=== PATIENT | female | born 1990 | race Caucasian/White ===

== ENCOUNTER 2022-11-03 14:37 | Inpatient (IN) | payer BC ==
[2022-11-04] MEDS ORDERED: ePHEDrine Sulfate 50 MG/10 ML VIAL ONE (08:00)
[2022-11-04] MEDS ORDERED: Bupivacaine 0.25% HCL 30 ML VIAL ONE (08:00)
[2022-11-04] MEDS ORDERED: Diphenoxylate HCl/Atropine Tablet PO PRN ×2 (14:33)
[2022-11-04] MEDS ORDERED: hydrALAZINE 20 MG/ML VIAL SLOW IVP PRN (14:33)
[2022-11-04] MEDS ORDERED: Ibuprofen 800 MG TAB PO PRN (14:33)
[2022-11-04] MEDS ORDERED: Misoprostol 200 MCG TAB PR PRN (14:33)
[2022-11-04] MEDS ORDERED: Docusate 100 MG CAP PO PRN (14:33)
[2022-11-04] MEDS ORDERED: Acetaminophen 500 MG TAB PO PRN (14:33)
[2022-11-04] MEDS ORDERED: Butorphanol Tartrate 1 MG/ML VIAL SLOW IVP PRN (14:33)
[2022-11-04] MEDS ORDERED: Promethazine HCl 25 MG/ML VIAL IM PRN (14:33)
[2022-11-04] MEDS ORDERED: HYDROcodone/Acetaminophen 5/325 mg Tablet PO PRN ×2 (14:33)
[2022-11-04] MEDS ORDERED: NS w/ Oxytocin 30 units 500 ML IV SCH ×2 (14:33)
[2022-11-04] MEDS ORDERED: Carboprost 250 MCG/ML AMP IM PRN (14:33)
[2022-11-04] MEDS ORDERED: Lidocaine 1% (PF) 30 ML VIAL SC PRN (14:33)
[2022-11-04] MEDS ORDERED: Ondansetron PF 4 MG/2 ML Vial IVP PRN (14:33)
[2022-11-04 14:36] VITALS: BMI 32.5
[2022-11-04] MEDS: Lactated Ringer's 1,000 ML IV SCH (15:00)
[2022-11-04] MEDS ORDERED: Penicillin G Potassium 5 MILL.UNITS in Sodium Chloride 0.9% 100 ML IVPB SCH (15:00)
[2022-11-04] MEDS: Misoprostol 100 MCG TAB VAG SCH (15:27)
[2022-11-04 15:44] LABS: Hemoglobin 13.1 g/dL (12.0-15.5); Mean Corpuscular HGB CONC 33.9 g/dL (32.0-36.0); Mean Corpuscular Volume 88.3 fl (81.6-98.3); Mean Platelet Volume 10.4 fl (7.4-10.4); Platelet Count 308 10x3/uL (150-450); RBC Distribution Width 13.1 % (11.5-14.5); Red Blood Cell (RBC) Count 4.37 10x6/uL (3.90-5.03); White Blood Cell (WBC) Count 11.5 10x3/uL (3.5-10.5)
[2022-11-04 16:06] LABS: SARS-CoV-2 NAA Rapid Test Not Detected (NotDetected)
[2022-11-04 16:18] LABS: HBSAg Index 0.12 S/CO (0-0.99); HIV (1/2) Antibody/Antigen Non-Reactive (NonReactive); HIV 1/2 INDEX 0.14 S/CO (<1.00); Hep B Surf Ag Non-Reactive S/CO (NonReactive)
[2022-11-04 16:24] LABS: Syphilis Antibody Nonreactive (Nonreactive); Syphilis Antibody Index 0.04 S/CO (<1.00 Non-Reactive)
[2022-11-04] MEDS: Penicillin G 2.5 MILL.units 2.5 MILL.UNITS in Premix Bag 1 BAG IVPB SCH ×2 (19:11→23:22)
[2022-11-05] MEDS: Misoprostol 100 MCG TAB VAG SCH ×5 (00:49→20:57)
[2022-11-05] MEDS: Penicillin G 2.5 MILL.units 2.5 MILL.UNITS in Premix Bag 1 BAG IVPB SCH ×4 (00:49→20:19)
[2022-11-05] MEDS: Lactated Ringer's 1,000 ML IV SCH ×3 (00:49→20:19)
[2022-11-05] MEDS ORDERED: Fentanyl 2 mcg/Bup 0.1% Cadd 100 ML ONE (10:32)
[2022-11-05] MEDS ORDERED: ePHEDrine Sulfate 50 MG/10 ML VIAL SLOW IVP PRN (14:11)
[2022-11-05] MEDS ORDERED: Lactated Ringer's 500 ML IV PRN (14:11)
[2022-11-05] MEDS ORDERED: Promethazine HCl 25 MG/ML VIAL IM PRN (14:11)
[2022-11-05] MEDS ORDERED: diphenhydrAMINE 50 MG/ML VIAL IVP PRN (14:11)
[2022-11-05] MEDS ORDERED: Moisturizing Cream (Eucerin) 113 GM JAR TOP PRN (14:11)
[2022-11-05] MEDS ORDERED: Acetaminophen 325 MG TAB PO PRN (14:11)
[2022-11-05] MEDS ORDERED: Ondansetron PF 4 MG/2 ML Vial IVP PRN ×2 (14:11→19:59)
[2022-11-05] MEDS ORDERED: Naloxone HCl 0.4 mg/ml Vial IVP PRN ×2 (14:11)
[2022-11-05] MEDS ORDERED: Communication Order-Pharmacy FS SCH (14:15)
[2022-11-05] MEDS ORDERED: Fentanyl 2 mcg/Bupivacaine 0.1% Cassette 100 ML EPIDURAL SCH (14:15)
[2022-11-05] MEDS ORDERED: diphenhydrAMINE 25 MG CAP PO PRN (19:59)
[2022-11-05] MEDS ORDERED: Bisacodyl 10 MG SUPP PR PRN (19:59)
[2022-11-05] MEDS ORDERED: Preparation H Ointment 28 GM TUBE PR PRN (19:59)
[2022-11-05] MEDS ORDERED: Zolpidem Tartrate 5 MG TAB PO PRN (19:59)
[2022-11-05] MEDS ORDERED: hydrALAZINE 20 MG/ML VIAL SLOW IVP PRN (19:59)
[2022-11-05] MEDS ORDERED: Boostrix 0.5 ML (Tdap) VIAL (>/=7 yrs of age) IM ONE (19:59)
[2022-11-05] MEDS ORDERED: Lanolin Ointment 7 GM TUBE TOP PRN (19:59)
[2022-11-05] MEDS ORDERED: Milk Of Magnesia 30 ML UDCUP PO PRN (19:59)
[2022-11-05] MEDS ORDERED: Misoprostol 200 MCG TAB VAG PRN (19:59)
[2022-11-05] MEDS ORDERED: HYDROcodone/Acetaminophen 5/325 mg Tablet PO PRN (19:59)
[2022-11-05] MEDS ORDERED: NS w/ Oxytocin 30 units 500 ML IV SCH (20:00)
[2022-11-05] MEDS ORDERED: Benzocaine-Menthol 82.5 ML CAN TOP PRN (22:47)
[2022-11-05] MEDS: Docusate 100 MG CAP PO SCH (22:49)
[2022-11-05] MEDS: Ibuprofen 800 MG TAB PO SCH (22:49)
[2022-11-06 04:09] LABS: Hemoglobin 11.8 g/dL (12.0-15.5); Mean Corpuscular HGB CONC 33.2 g/dL (32.0-36.0); Mean Corpuscular Hemoglobin 29.6 pg (27.0-33.0); Mean Corpuscular Volume 89.2 fl (81.6-98.3); Mean Platelet Volume 10.2 fl (7.4-10.4); Platelet Count 281 10x3/uL (150-450); RBC Distribution Width 12.9 % (11.5-14.5); Red Blood Cell (RBC) Count 3.98 10x6/uL (3.90-5.03); White Blood Cell (WBC) Count 20.7 10x3/uL (3.5-10.5)
[2022-11-06] MEDS: Ibuprofen 800 MG TAB PO SCH ×3 (06:10→21:01)
[2022-11-06] MEDS: Ferrous Sulfate 325 MG TAB PO SCH ×2 (07:46→15:30)
[2022-11-06] MEDS: Docusate 100 MG CAP PO SCH ×2 (08:27→21:01)
[2022-11-06] MEDS: Prenatal Vitamin 1 TAB PO SCH (08:27)
[2022-11-06] MEDS: HYDROcodone/Acetaminophen 5/325 mg Tablet PO PRN (21:02)
[2022-11-07] MEDS: Ibuprofen 800 MG TAB PO SCH (05:42)
[2022-11-07] MEDS: Ferrous Sulfate 325 MG TAB PO SCH (07:10)
[2022-11-07 07:53] VITALS: BP 111/74; TEMP 97.5
[2022-11-07] MEDS: Prenatal Vitamin 1 TAB PO SCH (08:58)
[2022-11-07] MEDS: Docusate 100 MG CAP PO SCH (08:58)
[2022-11-07] MEDS: HYDROcodone/Acetaminophen 5/325 mg Tablet PO PRN (11:28)
== END 2022-11-07 11:50 | disposition home or self-care (01) | DRG 768 ==
LOC: CSHLD 11-04 14:31 → CSHPP 11-05 21:40
PROVIDERS: ADMIT Obstetrics & Gynecology; ATTEND Obstetrics & Gynecology
PROC: 10D07Z6 Extraction of Products of Conception, Vacuum, Via Natural or Artificial Opening (ICD-10-PCS; principal; 2022-11-05)
PROC: 0UQJXZZ Repair Clitoris, External Approach (ICD-10-PCS; 2022-11-05)
PROC: 0KQM0ZZ Repair Perineum Muscle, Open Approach (ICD-10-PCS; 2022-11-05)
PROC: 3E0P7VZ Introduction of Hormone into Female Reproductive, Via Natural or Artificial Opening (ICD-10-PCS; 2022-11-05)
PROC: 0W8NXZZ Division of Female Perineum, External Approach (ICD-10-PCS; 2022-11-05)
PROC: 10907ZC Drainage of Amniotic Fluid, Therapeutic from Products of Conception, Via Natural or Artificial Opening (ICD-10-PCS; 2022-11-05)
DX: O99.824 Streptococcus B carrier state complicating childbirth (principal); Z37.0 Single live birth; Z3A.39 39 weeks gestation of pregnancy; Z20.822 Contact with and (suspected) exposure to COVID-19; O70.1 Second degree perineal laceration during delivery; O32.8XX0 Maternal care for other malpresentation of fetus, not applicable or unspecified
CPT/HCPCS: 36415; 51702; 85027; 86780; 86850; 86900; 86901; 87340; 87389; J2405; J2540; J3490; J7120; S0020; U0002

== ENCOUNTER 2024-04-27 00:58 | Inpatient (IN) | payer BC ==
[2024-04-27 01:18] VITALS: BMI 30.8
[2024-04-27] MEDS ORDERED: hydrALAZINE 20 MG/ML VIAL SLOW IVP PRN ×3 (02:03→15:16)
[2024-04-27] MEDS ORDERED: Promethazine HCl 25 MG/ML VIAL IM PRN ×2 (05:17→09:52)
[2024-04-27] MEDS ORDERED: Tranexamic Acid 1,000 MG/10 ML VIAL IVP PRN (05:17)
[2024-04-27] MEDS ORDERED: Lidocaine 1% (PF) 30 ML VIAL SC PRN (05:17)
[2024-04-27] MEDS ORDERED: Methylergonovine 0.2 MG/ML VIAL IM PRN (05:17)
[2024-04-27] MEDS ORDERED: Ondansetron PF 4 MG/2 ML Vial IVP PRN ×3 (05:17→15:16)
[2024-04-27] MEDS ORDERED: Carboprost 250 MCG/ML AMP IM PRN (05:17)
[2024-04-27] MEDS ORDERED: Diphenoxylate HCl/Atropine Tablet PO PRN (05:17)
[2024-04-27] MEDS ORDERED: Docusate 100 MG CAP PO PRN (05:17)
[2024-04-27] MEDS ORDERED: fentaNYL 50 mcg/mL 1 mL Vial SLOW IVP PRN (05:17)
[2024-04-27] MEDS ORDERED: Misoprostol 200 MCG TAB PR PRN (05:17)
[2024-04-27] MEDS ORDERED: Oxytocin 30 units/NS 500 ML 500 ML IV SCH ×3 (05:30→15:30)
[2024-04-27] MEDS ORDERED: Misoprostol 100 MCG TAB VAG SCH (05:30)
[2024-04-27] MEDS: Lactated Ringer's 1,000 ML IV SCH (05:46)
[2024-04-27] MEDS: Penicillin G Potassium 5 MILL.UNITS in Sodium Chloride 0.9% 100 ML IVPB SCH (05:46)
[2024-04-27 05:54] LABS: Hematocrit 38.8 % (34.9-44.5); Hemoglobin 13.4 g/dL (12.0-15.5); Mean Corpuscular HGB CONC 34.5 g/dL (32.0-36.0); Mean Corpuscular Hemoglobin 30.7 pg (27.0-33.0); Mean Platelet Volume 10.2 fL (7.4-10.4); Platelet Count 236 10x3/uL (150-450); RBC Distribution Width 14.4 % (11.5-14.5); Red Blood Cell (RBC) Count 4.36 10x6/uL (3.90-5.03); White Blood Cell (WBC) Count 9.8 10x3/uL (3.5-10.5)
[2024-04-27 06:23] LABS: HBsAg Index 0.16 S/CO (0-0.99); Hep B Surf Ag - L&D Non-Reactive S/CO (NonReactive)
[2024-04-27 06:25] LABS: Syphilis Antibody Nonreactive (Nonreactive); Syphilis Antibody Index 0.07 S/CO (<1.00 Non-Reactive)
[2024-04-27] MEDS: Acetaminophen 500 MG TAB PO PRN (07:15)
[2024-04-27] MEDS ORDERED: ePHEDrine Sulfate 50 MG/10 ML VIAL ONE (08:00)
[2024-04-27] MEDS ORDERED: Bupivacaine/Epinephrine 0.25% 30 ML VIAL ONE (08:00)
[2024-04-27] MEDS ORDERED: Bupivacaine 0.25% HCL 30 ML VIAL ONE (08:00)
[2024-04-27] MEDS: fentaNYL/Ropivacaine Epidural 100 ML ONE (08:49)
[2024-04-27] MEDS: Oxytocin 30 units/NS 500 ML 500 ML IV SCH (08:50)
[2024-04-27] MEDS: Penicillin G 2.5 MILL.units 2.5 MILL.UNITS in Premix 1 BAG IVPB SCH (09:44)
[2024-04-27] MEDS ORDERED: Lactated Ringer's 500 ML IV PRN (09:52)
[2024-04-27] MEDS ORDERED: Moisturizing Cream (Eucerin) 113 GM JAR TOP PRN (09:52)
[2024-04-27] MEDS ORDERED: Naloxone HCl 0.4 mg/ml Vial IVP PRN ×2 (09:52)
[2024-04-27] MEDS ORDERED: ePHEDrine Sulfate 50 MG/10 ML VIAL SLOW IVP PRN (09:52)
[2024-04-27] MEDS ORDERED: Acetaminophen 325 MG TAB PO PRN (09:52)
[2024-04-27] MEDS ORDERED: diphenhydrAMINE 50 MG/ML VIAL IVP PRN (09:52)
[2024-04-27] MEDS ORDERED: Communication Order-Pharmacy FS SCH (10:00)
[2024-04-27] MEDS ORDERED: fentaNYL 2 mcg/Ropivacaine 0.2% Epidural 100 ML CADD EPIDURAL SCH (10:00)
[2024-04-27] MEDS ORDERED: Bisacodyl 10 MG SUPP PR PRN (15:16)
[2024-04-27] MEDS ORDERED: Misoprostol 200 MCG TAB VAG PRN (15:16)
[2024-04-27] MEDS ORDERED: Preparation H Ointment 28 GM TUBE PR PRN (15:16)
[2024-04-27] MEDS ORDERED: HYDROcodone/Acetaminophen 5/325 mg Tablet PO PRN ×2 (15:16)
[2024-04-27] MEDS ORDERED: diphenhydrAMINE 25 MG CAP PO PRN (15:16)
[2024-04-27] MEDS ORDERED: Lanolin Ointment 7 GM TUBE TOP PRN (15:16)
[2024-04-27] MEDS ORDERED: Milk Of Magnesia 30 ML UDCUP PO PRN (15:16)
[2024-04-27] MEDS ORDERED: Benzocaine-Menthol 82.5 ML CAN TOP PRN (15:16)
[2024-04-27] MEDS: Ibuprofen 800 MG TAB PO PRN (15:50)
[2024-04-27] MEDS: Ondansetron PF 4 MG/2 ML Vial ONE (17:39)
[2024-04-27] MEDS: Boostrix 0.5 ML (Tdap) VIAL (>/=7 yrs of age) IM ONE (17:40)
[2024-04-27] MEDS: Ferrous Sulfate 325 MG TAB PO SCH (17:40)
[2024-04-27] MEDS: ePHEDrine Sulfate 50 MG/10 ML VIAL ONE (17:40)
[2024-04-27] MEDS: Ibuprofen 800 MG TAB PO SCH (21:12)
[2024-04-27] MEDS: Docusate 100 MG CAP PO SCH (21:12)
[2024-04-28] MEDS ORDERED: HYDROcodone/Acetaminophen 5/325 mg Tablet PO PRN (00:15)
[2024-04-28] MEDS: HYDROcodone/Acetaminophen 5/325 mg Tablet PO PRN (00:22)
[2024-04-28] MEDS: Prenatal Vitamin 1 TAB PO SCH (08:31)
[2024-04-28 11:13] VITALS: TEMP 97.6
[2024-04-28 16:50] VITALS: BP 99/64
[2024-04-28] MEDS ORDERED: Zolpidem Tartrate 5 MG TAB PO PRN (21:00)
== END 2024-04-28 17:00 | disposition home or self-care (01) | DRG 807 ==
LOC: CSHLD/OP 00:58 → CSHLD 05:05 → CSHPP 17:29
PROVIDERS: ADMIT Obstetrics & Gynecology; ATTEND Obstetrics & Gynecology
PROC: 10E0XZZ Delivery of Products of Conception, External Approach (ICD-10-PCS; principal; 2024-04-27)
PROC: 0UQMXZZ Repair Vulva, External Approach (ICD-10-PCS; 2024-04-27)
PROC: 10907ZC Drainage of Amniotic Fluid, Therapeutic from Products of Conception, Via Natural or Artificial Opening (ICD-10-PCS; 2024-04-27)
DX: O24.420 Gestational diabetes mellitus in childbirth, diet controlled (principal); Z37.0 Single live birth; O99.824 Streptococcus B carrier state complicating childbirth; Z79.899 Other long term (current) drug therapy; Z3A.39 39 weeks gestation of pregnancy; O70.0 First degree perineal laceration during delivery
CPT/HCPCS: 51702; 85027; 86780; 86850; 86900; 86901; 87340; 99285; J0665; J2405; J2540; J2590; J7120